=== PATIENT | male | born 1985 | race Caucasian/White ===

== ENCOUNTER → 2016-06-26 | Outpatient (CLI) | payer BC ==
[~2016-06-26] MED LIST: E-Z-GAS II EFFERVESCENT PACKET (SODIUM BICARB./CITRIC ACID/SIMETHICONE) As Ordered ONE; E-Z-HD 98% w/w 340GM SUSP BTL As Ordered ONE; E-Z-PAQUE 96% w/w SUSP 176GM BTL As Ordered ONE
--- NOTE | 2016-06-26 09:36 | REP ---
Double contrast esophagram: History: Episodic dysphagia, question esophageal obstruction. 1 minute 8 seconds of fluoroscopy time was utilized. Findings: Preliminary PA view of the chest is normal. Double contrast esophagram is performed. The oropharyngeal phase of barium swallow was observed fluoroscopically and recorded on rapid sequence spot films. This phase of the barium swallow is normal. There is no evidence of esophageal web or motor discoordination of swallow. There is minimal laryngeal penetration but no tracheal aspiration. There is mucosal irregularity in the distal 4-5 cm of the esophagus. A nonobstructing Schatzki's "B" ring is seen and the small sliding-type hiatal hernia is observed. Reflux was not witnessed during exam, however, mucosal changes and hiatal hernia suggest evidence of reflux esophagitis. No stricture is seen. Exam is otherwise unremarkable. Impression: Findings consistent with reflux esophagitis, small sliding hiatal hernia and nonobstructive Schatzki's "B" ring. Signed by Bulmaro Dougherty MD 06/26/2016 08:07 P
== END ==
LOC: M RAD 08:13
PROVIDERS: ATTEND Internal Medicine Gastroenterology
DX: R13.10 Dysphagia, unspecified (principal)

== ENCOUNTER → 2016-07-25 | Outpatient (CLI) | payer BC ==
[~2016-07-25] VITALS: Ht 190.5 cm; Wt 93.0 kg
[~2016-07-25] MED LIST changes: -E-Z-GAS II EFFERVESCENT PACKET (SODIUM BICARB./CITRIC ACID/SIMETHICONE) As Ordered ONE; -E-Z-HD 98% w/w 340GM SUSP BTL As Ordered ONE; -E-Z-PAQUE 96% w/w SUSP 176GM BTL As Ordered ONE; +LIDOCAINE 2% INJ 100 MG/5 ML SDV (FOR ANES.) As Ordered ONE; +NS 1,000 ML IV SCH; +PROPOFOL 500 MG/50 ML VIAL As Ordered ONE
--- NOTE | 2016-07-25 13:32 | ROOR ---
Patient Name: Shivam Lennon Procedure Date: 07/25/2016 1:01 PM Date of : 1985 Age: 30 Room: [facility] Gender: Male Note Status: Finalized Procedure: Upper GI endoscopy Indications: Dysphagia Providers: Good CAIN MD Referring MD: JAN COLLAZO MD Requesting Provider: Medicines: Monitored Anesthesia Care Complications: No immediate complications. Procedure: Pre-Anesthesia Assessment: - The heart rate, respiratory rate, oxygen saturations, blood pressure, adequacy of pulmonary ventilation, and response to care were monitored throughout the procedure. The Endoscope was introduced through the mouth, and advanced to the second part of duodenum. The upper GI endoscopy was accomplished without difficulty. The patient tolerated the procedure well. Findings: A widely patent Schatzki ring (acquired) was found at the gastroesophageal junction. A TTS dilator was passed through the scope. Dilation with an 18-19-20 mm x 8 cm CRE balloon dilator was performed to 20 mm. The dilation site was examined and showed no change/No engagement at 20 mm(max balloon size). This was biopsied with a cold forceps for histology and to fracture the ring. The entire examined stomach was normal. The examined duodenum was normal. Impression: - Widely patent Schatzki ring. Dilated. Biopsied. - Normal stomach. - Normal examined duodenum. Recommendation: - Continue present medications. - Follow an antireflux regimen. - Telephone endoscopist for pathology results in 2 weeks. Good Cain MD Good CAIN MD 07/25/2016 1:32:30 PM This report has been signed electronically. Number of Addenda: 0 Note Initiated On: 07/25/2016 1:01 PM Estimated Blood Loss: Estimated blood loss: none.
[2016-07-25 13:50] VITALS: BP 123/97
== END | disposition home or self-care (01) ==
LOC: M OPP 11:05
PROVIDERS: ATTEND Internal Medicine Gastroenterology
DX: K22.2 Esophageal obstruction (principal); K20.9 Esophagitis, unspecified